=== PATIENT | male | born 1995 | race Caucasian/White ===

== ENCOUNTER 2023-06-05 07:46 | Emergency (ER) | payer MEDICAID, OTHER ==
[~2023-06-05] VITALS: Ht 185.4 cm; Wt 113.4 kg
[2023-06-05 07:49] VITALS: BP 135/82; PULSE 59; RESP 16; TEMP 98.2; O2SAT 99
[2023-06-05] MEDS ORDERED: AMOX-1230 PO (08:02)
[2023-06-05 08:32] VITALS: BP 122/82; PULSE 64; RESP 16; TEMP 98.2; O2SAT 99
== END 2023-06-05 08:32 | disposition home or self-care (01) ==
LOC: MED 07:46
DX: S61.431A Puncture wound without foreign body of right hand, initial encounter (principal); W54.0XXA Bitten by dog, initial encounter; Y93.89 Activity, other specified; Y92.89 Other specified places as the place of occurrence of the external cause; Y99.8 Other external cause status
CPT/HCPCS: 90471; 90715; 99283